=== PATIENT | female | born 1930 | race Caucasian/White ===

== ENCOUNTER → 2017-01-23 | Outpatient (CLI) | payer OTHER | LOC: FIMAGING 11:01 | PROVIDERS: ATTEND Family Medicine Geriatric Medicine | DX: M11.20 Other chondrocalcinosis, unspecified site (principal) ==

== ENCOUNTER → 2017-08-09 | Outpatient (CLI) | payer OTHER | LOC: FIMAGING 11:56 | PROVIDERS: ATTEND Physical Medicine & Rehabilitation | DX: M51.36 Other intervertebral disc degeneration, lumbar region (principal) ==

== ENCOUNTER → 2017-08-14 | Outpatient (CLI) | payer OTHER ==
[~2017-08-14] MED LIST: IOPAMIDOL (ISOVUE-300) 150 ML BTL ONE
== END ==
LOC: FIMAGING 13:15
PROVIDERS: ATTEND Physical Medicine & Rehabilitation
DX: N28.1 Cyst of kidney, acquired (principal); K76.9 Liver disease, unspecified; K57.90 Diverticulosis of intestine, part unspecified, without perforation or abscess without bleeding; K44.9 Diaphragmatic hernia without obstruction or gangrene
CPT/HCPCS: 74178; Q9967

== ENCOUNTER 2017-08-26 12:55 | Day surgery (SDC) | payer OTHER ==
[2017-08-26] MEDS ORDERED: TRIAMCINOLONE ACETONIDE 200 MG/5 ML MDV IM ONE (13:56)
[2017-08-26] MEDS ORDERED: IOPAMIDOL (ISOVUE-M 300) 15 ML VIAL ONE (15:21)
[2017-08-27] MEDS ORDERED: LIDOCAINE 1% 300 MG/30 ML SDV ONE (08:00)
== END 2017-08-26 14:59 | disposition home or self-care (01) ==
LOC: FIMAGING 12:55
PROVIDERS: ATTEND Physical Medicine & Rehabilitation
PROC: 3E0S33Z Introduction of Anti-inflammatory into Epidural Space, Percutaneous Approach (ICD-10-PCS; principal; 2017-08-26)
DX: M54.41 Lumbago with sciatica, right side (principal); M54.42 Lumbago with sciatica, left side; M51.36 Other intervertebral disc degeneration, lumbar region
CPT/HCPCS: J3301; Q9967

== ENCOUNTER 2017-10-30 | Inpatient (IN) | payer OTHER | END 2017-11-03 12:57 | disposition home health service (06) | DRG 641 | PROVIDERS: ADMIT Internal Medicine ==

== ENCOUNTER 2017-11-04 16:55 | Inpatient (IN) | payer OTHER ==
[2017-11-04] MEDS ORDERED: NS 500 ML IV ONE (18:03)
--- NOTE | 2017-11-04 18:07 | EDPHY ---
H & P Stated Complaint: dc from hosp yesterday UTI /finished cipro today/dysuria fever Time Seen by Provider: 11/04/17 17:53 HPI/ROS: CHIEF COMPLAINT: Yeast infection, low sodium, fever HISTORY OF PRESENT ILLNESS: The patient is an 87-year-old female who comes to the emergency department complaining of yeast infection, low sodium and a fever at home. She was admitted to the hospital a week ago for hyponatremia polydipsia and urinary tract infection. She had fluid restriction and her sodium improved. She was treated with Cipro for her UTI and her took her last dose today. She felt like she had a fever chills at home and they had a nurse practitioner come to their home which diagnosed a yeast infection and prescribed nystatin cream. She also got a temperature of 101 degrees and give the patient Tylenol. The patient is currently afebrile. She also obtain an i- STAT and found the patient's sodium was 125. The patient's sodium was up to 130 yesterday when she was discharged. Patient states that she has not been drinking a lot of free water this time. Family does note that the patient resumed hydralazine once they returned home yesterday. Severity: Mild Modifying factors: None REVIEW OF SYSTEMS: Constitutional: denies: chills, fever, recent illness, recent injury EENTM: denies: blurred vision, double vision, nose congestion Respiratory: denies: cough, shortness of breath Cardiac: denies: chest pain, irregular heart rate, lightheadedness, palpitations Gastrointestinal/Abdominal: denies: abdominal pain, diarrhea, nausea, vomiting, blood streaked stools Genitourinary: Rash and mild dysuria denies: frequency, hematuria Musculoskeletal: denies: joint pain, muscle pain Skin: denies: lesions, rash, jaundice, bruising Neurological: denies: headache, numbness, paresthesia, tingling, dizziness, weakness Hematologic/Lymphatic: denies: blood clots, easy bleeding, easy bruising Immunologic/allergic: denies: HIV/AIDS, transplant EXAM: GENERAL: Well-appearing, well-nourished and in no acute distress. Difficulty hearing HEAD: Atraumatic, normocephalic. EYES: Pupils equal round and reactive to light, extraocular movements intact, sclera anicteric, conjunctiva are normal. ENT: TMs normal, nares patent, oropharynx clear without exudates. Moist mucous membranes. NECK: Normal range of motion, supple without lymphadenopathy or JVD. LUNGS: Breath sounds clear to auscultation bilaterally and equal. No wheezes rales or rhonchi. HEART: Regular rate and rhythm without murmurs, rubs or gallops. ABDOMEN: Soft, nontender, normoactive bowel sounds. No guarding, no rebound. No masses appreciated. : Mild yeast rash to labia and skin folds. Irritated, not bleeding BACK: No CVA tenderness, no spinal tenderness, step-offs or deformities EXTREMITIES: Normal range of motion, no pitting or edema. No clubbing or cyanosis. NEUROLOGICAL: Cranial nerves II through XII grossly intact. Normal speech, normal gait. 5/5 strength, normal movement in all extremities, normal sensation , normal reflexes PSYCH: Normal mood, normal affect. SKIN: Warm, dry, normal turgor, no visible rashes or lesions. Source: Patient Exam Limitations: No limitations - Personal History Current Tetanus Diphtheria and Acellular Pertussis (TDAP): Unsure - Medical/Surgical History Hx Asthma: No Hx Chronic Respiratory Disease: No Hx Diabetes: No Hx Cardiac Disease: No Hx Renal Disease: No Hx Cirrhosis: No Hx Alcoholism: No Hx HIV/AIDS: No Hx Splenectomy or Spleen Trauma: No Other PMH: breast cancer/choly/hysterectomy/appy spinal stenosis - Family History Significant Family History: No pertinent family hx - Social History Smoking Status: Former smoker Alcohol Use: Sober Drug Use: None Constitutional: Initial Vital Signs Temperature (C) 37.1 C 11/04/17 17:11 Heart Rate 78 11/04/17 17:11 Respiratory Rate 17 11/04/17 17:11 Blood Pressure 128/71 H 11/04/17 17:11 O2 Sat (%) 92 11/04/17 17:11 O2 Delivery Mode Room Air Allergies/Adverse Reactions: bee venom protein (honey bee) Allergy (Verified 11/04/17 17:11) Penicillins Allergy (Verified 11/04/17 17:11) joint swelling, itching Sulfa (Sulfonamide Antibiotics) Allergy (Verified 11/04/17 17:11) joint pain and swelling, itching Home Medications: Medication Instructions Recorded Acetaminophen [Tylenol Arthritis] 650 mg PO BID PRN 08/21/17 Allopurinol [Allopurinol 300 MG 300 mg PO DAILY 08/21/17 (RX)] Fluticasone Nasal [Flonase Nasal 2 sprays EACHNARE DAILY PRN 08/21/17 Almond] Levothyroxine [Synthroid 50 mcg 50 mcg PO DAILY06 08/21/17 (*)] Metoprolol Succinate Xr [Toprol Xl 100 mg PO DAILY 08/21/17 100 mg (*)] Cholecalciferol Vit D3 [Vitamin D3 1,000 units PO DAILY 10/30/17 (*)] Cyanocobalamin [Vitamin B12 (*)] 1,000 mcg PO DAILY 10/30/17 Herbals/Supplements -Info Only 1 ea PO AD 10/30/17 Hydralazine HCl 25 mg PO TID 10/30/17 Losartan Potassium [Cozaar 50 mg 50 mg PO DAILY #60 tab 11/03/17 (*)] Medical Decision Making ED Course/Re-evaluation: 6:55 p.m. the patient is again hyponatremic 123. She has a yeast infection. She does not have a fever here but took Tylenol at home. We will plan on admission again. 7:00 p.m. The patient and family agree with this plan. She is remaining afebrile. We will observe. 7:45 p.m. I discussed the case with Dr. Cash who will admit. Also discussed the case with renal who states the patient can handle more rapid correction. Differential Diagnosis: Partial list of the Differential diagnosis considered include but were not limited to; hyponatremia, medication reaction, urinary tract infection, yeast infection and although unlikely based on the history and physical exam, I also considered sepsis, pneumonia, meningitis. Critical Care Time: Critical care time spent by me, Dr. Momin exclusive with this patient was 35 minutes, exclusive of the PA time exclusive of procedures. The organ system that was at risk was neurologic, cardiovascular and I gave IV fluids, treatment , consultation and admission to prevent worsening of the patient's condition - Data Points Laboratory Results: Laboratory Results 11/04/17 18:10 11/04/17 18:10 11/04/17 11/04/17 11/04/17 18:10 18:10 18:10 WBC 13.36 10^3/uL H 10^3/uL (3.80-9.50) RBC 3.93 10^6/uL L 10^6/uL (4.18-5.33) Hgb 12.1 g/dL L g/dL (12.6-16.3) Hct 35.8 % L % (38.0-47.0) MCV 91.1 fL fL (81.5-99.8) MCH 30.8 pg pg (27.9-34.1) MCHC 33.8 g/dL g/dL (32.4-36.7) RDW 15.6 % H % (11.5-15.2) Plt Count 359 10^3/uL 10^3/uL (150-400) MPV 8.7 fL fL (8.7-11.7) Neut % (Auto) Not Reported Lymph % (Auto) Not Reported Craig % (Auto) Not Reported Eos % (Auto) Not Reported Baso % (Auto) Not Reported Nucleat RBC Rel Count Not Reported Absolute Neuts (auto) Not Reported Absolute Lymphs (auto) Not Reported Absolute Monos (auto) Not Reported Absolute Eos (auto) Not Reported Absolute Basos (auto) Not Reported Absolute Nucleated RBC Not Reported Immature Gran % Not Reported Seg Neutrophils % 89.9 % % Band Neutrophils % 3.0 % % Lymphocytes % 3.1 % % Monocytes % 2.0 % % Eosinophils % 2.0 % % Basophils % 0.0 % % Metamyelocytes % 0.0 % % Myelocytes % 0.0 % % Promyelocytes % 0.0 % % Blast Cells % 0.0 % % Immature Gran # Not Reported Absolute Seg Neuts 12.01 10^/uL H 10^/uL (1.70-6.50) Absolute Band Neuts 0.40 10^3/uL 10^3/uL (0.00-0.70) Absolute Lymphocytes 0.41 10^3/uL L 10^3/uL (1.00-3.00) Absolute Monocytes 0.27 10^3/uL L 10^3/uL (0.30-0.80) Absolute Eosinophils 0.27 10^3/uL 10^3/uL (0.03-0.40) Absolute Basophils 0.00 10^3/uL L 10^3/uL (0.02-0.10) Absolute Metamyelocyte 0.00 10^3/mL 10^3/mL (0.00-0.00) Absolute Myelocytes 0.00 10^3/mL 10^3/mL (0.00-0.00) Absolute Promyelocytes 0.00 10^3/uL 10^3/uL (0.00-0.00) Absolute Plasma Cells 0.00 10^3/uL 10^3/uL (0.00-0.00) Nucleated RBCs 0 /100 WBC /100 WBC (0-0) RBC/WBC/PLT Morphology NORMAL (NORMAL) Absolute Blast Cells 0.00 10^3/uL 10^3/uL (0.00-0.00) Plasma Cells % 0.0 % % Platelet Estimate ADEQUATE (ADEQ) PT 13.0 SEC SEC (12.0-15.0) INR 0.96 (0.83-1.16) APTT 25.3 SEC SEC (23.0-38.0) VBG Lactic Acid 1.5 mmol/L mmol/L (0.7-2.1) Sodium Potassium Chloride Carbon Dioxide Anion Gap BUN Creatinine Estimated GFR Glucose Calcium Total Bilirubin Conjugated Bilirubin Unconjugated Bilirubin AST ALT Alkaline Phosphatase Total Protein Albumin 11/04/17 18:10 WBC RBC Hgb Hct MCV MCH MCHC RDW Plt Count MPV Neut % (Auto) Lymph % (Auto) Craig % (Auto) Eos % (Auto) Baso % (Auto) Nucleat RBC Rel Count Absolute Neuts (auto) Absolute Lymphs (auto) Absolute Monos (auto) Absolute Eos (auto) Absolute Basos (auto) Absolute Nucleated RBC Immature Gran % Seg Neutrophils % Band Neutrophils % Lymphocytes % Monocytes % Eosinophils % Basophils % Metamyelocytes % Myelocytes % Promyelocytes % Blast Cells % Immature Gran # Absolute Seg Neuts Absolute Band Neuts Absolute Lymphocytes Absolute Monocytes Absolute Eosinophils Absolute Basophils Absolute Metamyelocyte Absolute Myelocytes Absolute Promyelocytes Absolute Plasma Cells Nucleated RBCs RBC/WBC/PLT Morphology Absolute Blast Cells Plasma Cells % Platelet Estimate PT INR APTT VBG Lactic Acid Sodium 123 mEq/L L mEq/L (135-145) Potassium 5.0 mEq/L mEq/L (3.3-5.0) Chloride 92 mEq/L L mEq/L (97-110) Carbon Dioxide 23 mEq/l mEq/l (22-31) Anion Gap 8 mEq/L mEq/L (8-16) BUN 26 mg/dL H mg/dL (7-23) Creatinine 1.1 mg/dL H mg/dL (0.6-1.0) Estimated GFR 47 Glucose 117 mg/dL H mg/dL (70-100) Calcium 10.5 mg/dL H mg/dL (8.5-10.4) Total Bilirubin 0.7 mg/dL mg/dL (0.1-1.4) Conjugated Bilirubin 0.3 mg/dL mg/dL (0.0-0.5) Unconjugated Bilirubin 0.4 mg/dL mg/dL (0.0-1.1) AST 25 IU/L IU/L (14-46) ALT 70 IU/L H IU/L (9-52) Alkaline Phosphatase 139 IU/L H IU/L (38-126) Total Protein 6.0 g/dL L g/dL (6.3-8.2) Albumin 3.4 g/dL L g/dL (3.5-5.0) Medications Given: Acetaminophen (Tylenol) 650 mg PO Q4HRS PRN PRN Reason: Pain, Mild/Fever, Can Take PO Stop: 05/03/18 19:51 Last Admin: 11/04/17 21:00 Dose: 650 mg Heparin Sodium (Porcine) (Heparin Sc Injection) 5,000 unit SC Q8HRS [facility] Stop: 05/03/18 21:59 Last Admin: 11/04/17 21:26 Dose: 5,000 unit Discontinued Medications Fluconazole (Diflucan) 150 mg PO EDNOW ONE Stop: 11/04/17 18:58 Last Admin: 11/04/17 19:03 Dose: 150 mg Sodium Chloride (Ns) 500 mls @ 0 mls/hr IV EDNOW ONE; Wide Open PRN Reason: Protocol Stop: 11/04/17 18:04 Last Admin: 11/04/17 18:24 Dose: 500 mls Departure - Departure Disposition: [facility] In[facility] Acute Clinical Impression: Hyponatremia, Candidiasis of vagina Condition: Fair
[2017-11-04 18:28] LABS: INR 0.96 (0.83-1.16)
[2017-11-04 18:43] LABS: PLATELET COUNT 359 10^3/uL (150-400)
[2017-11-04] MEDS ORDERED: FLUCONAZOLE 150 MG TAB PO ONE (18:57)
[2017-11-04] MEDS ORDERED: ONDANSETRON DISINTEGRATING 4 MG TAB PO PRN (19:52)
[2017-11-04] MEDS ORDERED: ONDANSETRON 4 MG/2 ML VIAL IVP PRN (19:52)
[2017-11-04] MEDS: ACETAMINOPHEN 325 MG TAB PO PRN (21:00)
[2017-11-04] MEDS: HEPARIN 5,000 UNIT/0.5 ML INJ SC SCH (21:26)
--- NOTE | 2017-11-04 21:29 | GHP ---
[f rep st] HISTORY AND PHYSICAL DATE OF ADMISSION: 11/04/2017 CHIEF COMPLAINT: Fever, fatigue. HISTORY OF PRESENT ILLNESS: An 87-year-old female, who was just discharged yesterday from [facility] after presenting with significant hyponatremia. At presentation of that admission, hyponatremia was thought to be secondary to polydipsia, hydrochlorothiazide, and urinary tract infection. She initially got fluids in the ER, which corrected too quickly and was placed on a fluid restriction. Her sodium at discharge was 130. She was doing well until this afternoon, when she started fevering to 101. A physical therapist was at her house, took her temperature, they did an i-STAT UA that was negative. She was nauseated today but eating. She had breakfast and lunch. Completed a course of Cipro for a UTI. Complains of a dry cough with white sputum. No sore throat. No diarrhea. Has a rash in her groin. Ankles and feet are a little swollen. She took her blood pressure medications this morning, but daughter held her afternoon hydralazine with a systolic blood pressure of 110. REVIEW OF SYSTEMS: I completed a 10-point review of systems, negative except as noted in HPI. PAST MEDICAL HISTORY: Hypertension, chronic back pain, recent E coli UTI treated, hypothyroidism, gout, spinal stenosis. PAST SURGICAL HISTORY: Lumbar spine injection August 2017. FAMILY HISTORY: No adrenal insufficiency. HOME MEDICATIONS: Losartan 50 mg daily, metoprolol 100 mg daily, levothyroxine 50 mcg daily, hydralazine 25 mg t.i.d., herbal supplement, Flonase, vitamin B12 , allopurinol 300 mg daily, APAP. ALLERGIES: Bee venom protein, penicillins, joint swelling, itchy. Sulfa, same. PHYSICAL EXAMINATION: VITAL SIGNS: Temperature 37.1 (101 at home per PT notes) , blood pressure 128/71, now 149/72, heart rate is in the 70s, respirations 18, 92% on room air. GENERAL: She appears fatigued, but no acute distress. HEENT : Oropharynx clear. Dry mucous membranes. CV: Regular rate and rhythm. Lower ankle edema. LUNGS: Diminished but clear. No crackles or wheezing. ABDOMEN: Soft, nontender, nondistended. : No suprapubic or CVA tenderness. Has a yeastlike rash in groin bilaterally. SKIN: No rash. Warm. NEURO: 2 through 12 intact. PSYCH: Alert and oriented x3. LABS: WBC 13, hemoglobin 12, hematocrit 35, platelets 359. Coags within normal. Lactate is 1.5. Sodium 123, yesterday was 130. Chloride 92, carbon dioxide 23, BUN 26, creatinine is 1.1, calcium is 10.5. Total bilirubin normal , AST 25, ALT 78, alk phos 139, total protein 6, albumin 3.4. Urine culture , E coli pansensitive. Chest x-ray is mild BL patchy opacities ASSESSMENT AND PLAN: 1. SIRs: Leukocytosis, fever at home. E coli UTI just treated. Blood cultures are pending. Query PNA with new cough and small infiltrates. Check procalcitonin. Cover with LQ (PCN-allergy). Resp PCR pending. Hemodynamically stable. Lactate is normal. 2. Hypovolemic hyponatremia: dry on exam. Insensible losses with fever. Received 500 cc in ER. repeat a BMP. If trending up, cont IVs. Can correct quickly since acute.s. TSH normal. Check AM cortisol. 3. Mild acute kidney injury. Hold losartan. Give IV fluids. 4. Hypoalbuminemia. Albumin is 3.4. 5. Hypertension. Was recently hospitalized at [facility] with hypertensive urgency. Hold losartan with acute kidney injury. Hydrochlorothiazide was stopped this week with hyponatremia. Reassess multiple antihypertensives once patient is improved from acute illness. 6. Chronic back pain. Tylenol, hypothyroidism, levothyroxine. 7. Intertriginous candidiasis: Nystatin cream 7. Diet: Regular. 8. Deep venous thrombosis prophylaxis, subcutaneous heparin with acute kidney injury. DISPOSITION: Patient warrants inpatient admission for SIRS, requiring further lab workup, IV fluids, and possibly antibiotics. /[id number]/MODL MTDD
[2017-11-04] MEDS: NYSTATIN 15 GM CR TUBE TP SCH (22:50)
[2017-11-05] MEDS: ACETAMINOPHEN 325 MG TAB PO PRN ×5 (04:12→22:06)
[2017-11-05] MEDS: HEPARIN 5,000 UNIT/0.5 ML INJ SC SCH (06:28)
[2017-11-05] MEDS ORDERED: ENOXAPARIN 40 MG/0.4 ML SYR SC SCH (09:00)
[2017-11-05] MEDS: METOPROLOL SUCCINATE XR 100 MG TAB PO SCH (09:39)
[2017-11-05] MEDS: NYSTATIN 15 GM CR TUBE TP SCH ×2 (09:39→22:05)
[2017-11-05] MEDS: ALLOPURINOL 300 MG TAB PO SCH (09:39)
[2017-11-05] MEDS: LEVOTHYROXINE 50 MCG TAB PO SCH (10:20)
--- NOTE | 2017-11-05 10:28 | PDMN ---
Medical Necessity Medical necessity: MCG MGSIC Systemic or Infectious Condition GR87 y/o w/ SIRS: leukocytosis, fever at home, E coli UTI just treated. BC and UC pending, query PNA w/ new cough and small infiltrates. Hypovolemic hyponatremia (Na+ 123 ), IV fluids required, WALESKA and hypocalcemia noted, elevated ALT, alk phos, low albumin. Per MD pt warrants IP admit for SIRS, requiring further lab workup, IV fluids and IV antibx. Hx HTN, recent UTI, hypothyroid, gout and spinal stenosis.
--- NOTE | 2017-11-05 12:58 | HOSPPROG ---
Hospitalist Progress Note Assessment/Plan: Marium Nunes is an 87 yo Female who presents with hyponatremia and SIRS (fever, leukocytosis) SIRS - Leukocytosis and fever on admission - S/p treatment for E Coli UTI - Blood and urine cultures pending - CXR on admission shows patchy b/l LL opacities, concern for PNA - Continue Levaquin (Day 2) - If repeat fevers, worsening leukocytosis then broaden abx Hyponatremia - Likely hypovolemic - S/p 500 cc IVF in ED - Na 128 this AM from 123 on admission - Continue to monitor Na levels daily WALESKA - Cr 1.1 on admission - S/p IVF, Cr improved to 0.9 this AM - Holding Losartan in setting of WALESKA, will likely restart tomorrow if renal function remains stable - Continue to monitor I/O, BMP HTN - Recently hospitalized at OSH for hypertensive urgency - Holding Losartan as above and HCTZ recently d/c due to hyponatremia - Malnutrition/Hypoalbuminemia - Albumin 3.4 - Consult final assembly and packing supervisor Chronic Back Pain - Continue Tylenol PRN Hypothyroidism - Continue home synthroid Diet: Rgeular DVT: SUBQ Heparin Code: DNR Dispo: Pending clinical course Subjective: Patient reports feeling better this AM with no more chills Objective: Vital Signs Temp Pulse Resp BP Pulse Ox 36.4 C 85 16 105/53 L 93 11/05/17 11:25 11/05/17 11:25 11/05/17 11:25 11/05/17 11:25 11/05/17 11:25 Microbiology 11/04/17 22:50 Respiratory Panel (PCR) - Final Nasal, Sinus - Anaerobic Tube/Swab No Organism Detected Laboratory Results 11/05/17 04:22 11/05/17 04:22 11/04/17 11/05/17 11/06/17 05:59 05:59 05:59 Intake Total 500 300 Output Total 450 Balance 500 -150 PT 13.0 SEC (12.0-15.0) 11/04/17 18:10 INR 0.96 (0.83-1.16) 11/04/17 18:10 - Physical Exam Constitutional: no apparent distress Eyes: PERRL Ears, Nose, Mouth, Throat: dry mucous membranes Cardiovascular: regular rate and rhythym Respiratory: no respiratory distress Gastrointestinal: soft, non-tender abdomen Genitourinary: no bladder fullness Skin: warm Musculoskeletal: no muscle tenderness Neurologic: AAOx3 Psychiatric: interacting appropriately ICD10 Worksheet Patient Problems: Problems Problem Status Onset Candidiasis of vagina Acute Hyponatremia Acute
--- NOTE | 2017-11-05 14:58 | ASMTCASEMG ---
Living Arrangements What is your living Answers: Alone arrangement? Who do you live with? Type Of Residence What kind of residence do Answers: Group Home you live in? Type of Residence Facility Name Notes: [facility] Living Discharge Plan Comments Coordination Status Comments Notes: Pts case discussed in tx rounds. Pt was recently dc from [facility] on 11/03/17 for hyponatremia. Pt is a 87 y/o female admitted for a similar presentation in addition to a yeast infection. Pt will d/c to Marj's (daughter) home in [place]. PT is recommending HC. Pt will continue w/ [facility]. CM to follow. Plan: [facility]; PT, OT Date Signed: 11/05/2017 02:57 PM Electronically Signed By:KADI Puckett
[2017-11-06] MEDS: LEVOTHYROXINE 50 MCG TAB PO SCH (06:07)
[2017-11-06] MEDS: ACETAMINOPHEN 325 MG TAB PO PRN ×2 (07:07→13:43)
[2017-11-06] MEDS: METOPROLOL SUCCINATE XR 100 MG TAB PO SCH (08:48)
[2017-11-06] MEDS: ALLOPURINOL 300 MG TAB PO SCH (08:48)
[2017-11-06] MEDS: NYSTATIN 15 GM CR TUBE TP SCH (08:49)
[2017-11-06 11:00] VITALS: BP 102/48
--- NOTE | 2017-11-06 12:31 | PDIAF ---
- Diagnosis Diagnosis: Pneumonia Code Status: Do Not Resuscitate - Medication Management Discharge Medications: Medications to Continue on Transfer Acetaminophen [Tylenol Arthritis] 650 mg PO BID PRN 08/21/17 [Last Taken ] Allopurinol [Allopurinol 300 MG (RX)] 300 mg PO DAILY 08/21/17 [Last Taken 11/04] Fluticasone Nasal [Flonase Nasal [place]] 2 sprays EACHNARE DAILY PRN 08/21/17 [ Last Taken Unknown] Levothyroxine [Synthroid 50 mcg (*)] 50 mcg PO DAILY06 08/21/17 [Last Taken ] Metoprolol Succinate Xr [Toprol Xl 100 mg (*)] 100 mg PO DAILY 08/21/17 [Last Taken 11/04/17] Cholecalciferol Vit D3 [Vitamin D3 (*)] 1,000 units PO DAILY 10/30/17 [Last Taken 11/04/17] Cyanocobalamin [Vitamin B12 (*)] 1,000 mcg PO DAILY 10/30/17 [Last Taken ] Herbals/Supplements -Info Only 1 ea PO AD 10/30/17 [Last Taken Unknown] Losartan Potassium [Cozaar 50 mg (*)] 50 mg PO DAILY #60 tab 11/03/17 [Last Taken 11/04/17] levOFLOXACIN [levAQUIN (*)] 750 mg PO Q24H #3 tab 11/06/17 [Last Taken Unknown] Discharge Medications: Refer to the Discharge Home Medication list for PRN reason. - Orders Services needed: Registered Nurse, Physical Therapy, Occupational Therapy Diet Recommendation: no restrictions on diet Diet Texture: Regular Texture Diet - Follow Up Care Current Providers and Referrals: Avinash Rossi MD [Primary Care Provider] - As per Instructions
--- NOTE | 2017-11-06 12:44 | ASMTDCNOTE ---
Case Management Discharge Discharge Order Complete? Answers: Yes Patient to Obtain Answers: Independently Medications Transportation Arranged Answers: Family/Friends EMTALA Complete Answers: No Case Management Transport Answers: No Form Complete Faxed Final Orders Answers: Yes Agency/Facility Transfer Answers: Yes Report Printed & Faxed to Receiving Agency Family Notified Answers: Yes Discharge Comments Notes: Pts case discussed in tx rounds. PT is recommending SNF. Pt and daughter is refusing SNF and would like to continue w/ [facility]. CM notified [facility] of the d/c. provided TITO Blackwood w/ phone number to call report. CM available for changes. Plan: [facility]; PT, OT, RN Date Signed: 11/06/2017 12:43 PM Electronically Signed By:KADI Puckett
--- NOTE | 2017-11-06 12:45 | ASMTLACE ---
LACE Length of stay for Answers: 2 days current admission Acuity / Level of Answers: Yes Care: Did the patient have an inpatient admission? Comorbidities - select Answers: Opioid dependence all that apply / Chronic pain Other Notes: HTN; Hypothyroid # of Emergency department Answers: 1-2 visits in the last 6 months Score: 11 Date Signed: 11/06/2017 12:44 PM Electronically Signed By:KADI Puckett
--- NOTE | 2017-11-06 13:44 | PDDCSUM ---
Discharge Summary Discharge Summary: Admission Date: 11/04/2017 Discharge Date: 11/06/2017 Admission Diagnosis: SIRS Discharge Diagnosis: Bacterial PNA, WALESKA, Hyponatremia Consults: N/A Procedures: CXR FollowUP: PCP Marium Nunes is an 87 yo Female who presentsed with hyponatremia and SIRS (fever , leukocytosis) Bacterial PNA - Leukocytosis and fever on admission - S/p treatment for E Coli UTI - Blood and urine cultures with NGTD - CXR on admission shows patchy b/l LL opacities, concern for PNA - Discharged to complete 5 ay course of Levaquin 750 mg QD (Day 35) Hyponatremia - Likely hypovolemic - S/p 500 cc IVF in ED - Na 128 this AM from 123 on admission - Plan to recheck Na in next week with PCP WALESKA - Cr 1.1 on admission - S/p IVF, Cr improved to 0.9 this AM - Holding Losartan in setting of WALESKA, will restart upon discharge - Continue to monitor I/O, BMP HTN - Recently hospitalized at OSH for hypertensive urgency - Holding Losartan as above and HCTZ recently d/c due to hyponatremia - Will discharge patient on Losartan and hold Metoprolol and Hydralazine, patient's daughter will check patient's BP daily and report to PCP Malnutrition/Hypoalbuminemia - Albumin 3.4 - Consulted plant tender Chronic Back Pain - Continue Tylenol PRN Hypothyroidism - Continue home synthroid Time spent on discharge >35 minutes with >50% of time spent on education and counseling of patient and family
--- NOTE | 2017-11-08 11:31 | ASDISCHSUM ---
Discharge Information Plan Status:Home with Home Health Medically Cleared to Leave: Discharge Date:11/06/2017 03:25 PM CM D/C Disposition: ADT D/C Disposition:Home, Routine, Self-Care Projected Discharge Date:11/07/2017 11:00 AM Transportation at D/C: Discharge Delay Reason: Follow-Up Date:11/07/2017 11:00 AM Discharge Slot: Final Diagnosis: Placement Information Referral Type:*Home Health Care Services Referral ID:[id number] Provider Name:[facility] Address 1:[address] [place] [address] Address 2: City:[place] Selection Factors: State:[place] Patient Contact Information Contact Name:SHMUEL Relationship:Daughter Address: City:[place] Alternate Phone: State/Zip Code:[place] Email: Financial Information Financial Class:Medicare Primary Plan Desc:MEDICARE INPATIENT Primary Plan Number:[id number] Secondary Plan Desc:ZACChuckGHISLAINE EDUAR POS O Secondary Plan Number:[id number] Assessment Information LACE LACE Length of stay for Answers: 2 days current admission Acuity / Level of Answers: Yes Care: Did the patient have an inpatient admission? Comorbidities - select Answers: Opioid dependence all that apply / Chronic pain Other Notes: HTN; Hypothyroid # of Emergency department Answers: 1-2 visits in the last 6 months Score: 11 Date Signed: 11/06/2017 12:44 PM Electronically Signed By:KADI Puckett [facility] Initial CM Assessment Living Arrangements What is your living Answers: Alone arrangement? Who do you live with? Type Of Residence What kind of residence do Answers: [facility] you live in? Type of Residence Facility Name Notes: [facility] Living Discharge Plan Comments Coordination Status Comments Notes: Pts case discussed in tx rounds. Pt was recently dc from [facility] on 11/03/17 for hyponatremia. Pt is a 87 y/o female admitted for a similar presentation in addition to a yeast infection. Pt will d/c to Marj's (daughter) home in [place]. PT is recommending HC. Pt will continue w/ [facility]. CM to follow. Plan: [facility]; PT, OT Date Signed: 11/05/2017 02:57 PM Electronically Signed By:KADI Puckett Case Management Discharge Plan Note Case Management Discharge Discharge Order Complete? Answers: Yes Patient to Obtain Answers: Independently Medications Transportation Arranged Answers: Family/Friends EMTALA Complete Answers: No Case Management Transport Answers: No Form Complete Faxed Final Orders Answers: Yes Agency/Facility Transfer Answers: Yes Report Printed & Faxed to Receiving Agency Family Notified Answers: Yes Discharge Comments Notes: Pts case discussed in tx rounds. PT is recommending SNF. Pt and daughter is refusing SNF and would like to continue w/ [facility]. CM notified [facility] of the d/c. CM provided [facility] w/ phone number to call report. CM available for changes. Plan: [facility]; PT, OT, RN Date Signed: 11/06/2017 12:43 PM Electronically Signed By:KADI Puckett Intervention Information Intervention Type:*Incorrect Registration Date of Service:11/05/2017 10:10 AM Patient Type:Observation Staff Member:Elke Christie Hours: Discipline: Severity: Comment:
== END 2017-11-06 15:25 | disposition home health service (06) | DRG 194 ==
LOC: OBSVTOIN 19:54 → F2N 20:45 → F2W 11-05 03:59
PROVIDERS: ADMIT Internal Medicine; ATTEND Internal Medicine
DX: J18.9 Pneumonia, unspecified organism (principal); E87.1 Hypo-osmolality and hyponatremia; N17.9 Acute kidney failure, unspecified; I10 Essential (primary) hypertension; E46 Unspecified protein-calorie malnutrition; M54.9 Dorsalgia, unspecified; E03.9 Hypothyroidism, unspecified; M10.9 Gout, unspecified; B37.2 Candidiasis of skin and nail; Z66 Do not resuscitate
CPT/HCPCS: 87449-90; 97116-GP; 97161-GP; G8978-GP-CJ; G8979-GP-CI; J1644

== ENCOUNTER 2017-12-27 10:53 | Day surgery (SDC) | payer OTHER ==
[2017-12-27] MEDS ORDERED: IOPAMIDOL (ISOVUE-M 300) 15 ML VIAL ONE (11:15)
[2017-12-27] MEDS ORDERED: LIDOCAINE 1% 300 MG/30 ML SDV ONE (11:15)
[2017-12-27] MEDS ORDERED: TRIAMCINOLONE ACETONIDE 200 MG/5 ML MDV IM ONE (11:15)
== END 2017-12-27 13:00 | disposition home or self-care (01) ==
LOC: FIMAGING 10:53
PROVIDERS: ATTEND Physical Medicine & Rehabilitation
PROC: 3E0S33Z Introduction of Anti-inflammatory into Epidural Space, Percutaneous Approach (ICD-10-PCS; principal; 2017-12-27)
PROC: 3E0S3BZ Introduction of Anesthetic Agent into Epidural Space, Percutaneous Approach (ICD-10-PCS; principal; 2017-12-27)
DX: M54.16 Radiculopathy, lumbar region (principal)
CPT/HCPCS: J3301; Q9967

== ENCOUNTER 2018-03-31 09:56 | Day surgery (SDC) | payer OTHER ==
[2018-03-31] MEDS ORDERED: IOPAMIDOL (ISOVUE-M 300) 15 ML VIAL ONE (10:21)
[2018-03-31] MEDS ORDERED: LIDOCAINE 1% 300 MG/30 ML SDV ONE (10:21)
== END 2018-03-31 14:00 | disposition home or self-care (01) ==
LOC: FIMAGING 09:56
PROVIDERS: ATTEND Radiology Diagnostic Radiology
PROC: 3E0S33Z Introduction of Anti-inflammatory into Epidural Space, Percutaneous Approach (ICD-10-PCS; principal; 2018-03-31)
PROC: 3E0S3BZ Introduction of Anesthetic Agent into Epidural Space, Percutaneous Approach (ICD-10-PCS; principal; 2018-03-31)
DX: M54.5 Low back pain (principal)
CPT/HCPCS: Q9967

== ENCOUNTER 2018-06-26 13:45 | Day surgery (SDC) | payer OTHER ==
[2018-06-26] MEDS ORDERED: IOPAMIDOL (ISOVUE-M 300) 15 ML VIAL ONE (14:01)
[2018-06-26] MEDS ORDERED: TRIAMCINOLONE ACETONIDE 200 MG/5 ML MDV IM ONE (14:01)
== END 2018-06-26 15:50 | disposition home or self-care (01) ==
LOC: FIMAGING 13:45
PROVIDERS: ATTEND Radiology Diagnostic Radiology
PROC: 3E0S33Z Introduction of Anti-inflammatory into Epidural Space, Percutaneous Approach (ICD-10-PCS; principal; 2018-06-26)
PROC: 3E0S3BZ Introduction of Anesthetic Agent into Epidural Space, Percutaneous Approach (ICD-10-PCS; principal; 2018-06-26)
PROC: BR1B1ZZ Fluoroscopy of Lumbosacral Joint using Low Osmolar Contrast (ICD-10-PCS; principal; 2018-06-26)
DX: M54.10 Radiculopathy, site unspecified (principal)
CPT/HCPCS: J3301; Q9967

== ENCOUNTER → 2018-07-05 | Outpatient (CLI) | payer OTHER | LOC: FIMAGING 14:47 | PROVIDERS: ATTEND Neurological Surgery | DX: M89.38 Hypertrophy of bone, other site (principal); M48.062 Spinal stenosis, lumbar region with neurogenic claudication ==

== ENCOUNTER → 2018-07-08 | Outpatient (CLI) | payer OTHER | LOC: FIMAGING 09:48 | PROVIDERS: ATTEND Family Medicine Geriatric Medicine | DX: Z01.811 Encounter for preprocedural respiratory examination (principal); M48.00 Spinal stenosis, site unspecified ==

== ENCOUNTER 2018-08-14 05:33 | Inpatient (IN) | payer OTHER | END 2018-08-20 11:24 | LOC: F3N 05:33 → F2W 09:47 → F3N 21:23 ==